=== PATIENT | male | born 1965 | race Asian ===

== ENCOUNTER 2018-09-03 14:07 | Inpatient (IN) | payer BC ==
[2018-09-03 14:46] LABS: ADD MAN DIFF? NO
[2018-09-03 14:48] LABS: BASOPHIL # 0.1 10^3/ul (0.0-0.1); BASOPHILS % 0.4 % (0.0-2.0); EOSINOPHILS # 0.6 10^3/ul (0.0-0.5); EOSINOPHILS % 5.8 % (0.0-7.0); HEMATOCRIT 44.6 % (42.0-52.0); HEMOGLOBIN 15.2 g/dl (14.0-18.0); LYMPHOCYTES # 2.9 10^3/ul (0.8-2.9); LYMPHOCYTES % 25.6 % (15.0-51.0); MEAN CORPUSCULAR HEMOGLOBIN 31.5 pg (29.0-33.0); MEAN CORPUSCULAR HGB CONC 34.1 g/dl (32.0-37.0); MEAN CORPUSCULAR VOLUME 92.3 fl (82.0-101.0); MEAN PLATELET VOLUME 9.9 fl (7.4-10.4); MONOCYTE # 0.7 10^3/ul (0.3-0.9); MONOCYTES % 6.4 % (0.0-11.0); NEUTROPHIL # 6.8 10^3/ul (1.6-7.5); NEUTROPHILS % 61.4 % (39.0-77.0); PLATELET COUNT 192 10^3/UL (140-415); RED BLOOD COUNT 4.83 10^6/ul (4.70-6.10); RED CELL DISTRIBUTION WIDTH 12.5 % (11.5-14.5)
[2018-09-03 14:48] LABS: WHITE BLOOD COUNT 11.1 10^3/ul (4.8-10.8)
[2018-09-03] MEDS: SOD CHLORIDE 0.9% 1,000 ML IV (14:49)
[2018-09-03 15:07] LABS: ANION GAP 9 (5-13); BLOOD UREA NITROGEN 14 mg/dl (7-20); CARBON DIOXIDE 25 mmol/L (21-31); CHLORIDE 103 mmol/L (97-110); CREATININE 0.92 mg/dl (0.61-1.24); Estimated GFR > 60 mL/min (>60); GLUCOSE 115 mg/dl (70-220); POTASSIUM 3.6 mmol/L (3.5-5.1); SODIUM 137 mmol/L (135-144)
[2018-09-03 15:21] LABS: TROPONIN-I 0.402 ng/ml (0.000-0.120)
[2018-09-03] MEDS: ASPIRIN 81 MG TAB PO ×2 (16:00→23:54)
[2018-09-03] MEDS ORDERED: ONDANSETRON 4 MG INJ IV ×2 (18:00→18:30)
[2018-09-03] MEDS ORDERED: ACETAMINOPHEN 325 MG TAB PO ×2 (18:00→18:30)
[2018-09-03] MEDS ORDERED: HYDROCODONE/APAP (5/325) TAB PO (18:30)
[2018-09-03] MEDS ORDERED: NITROGLYCERIN (SL) 0.4 MG TAB SL (18:30)
[2018-09-03] MEDS ORDERED: NACL 0.9% 3 ML SYG IV (18:30)
[2018-09-03] MEDS ORDERED: DOCUSATE SODIUM 100 MG CAP PO (18:30)
[2018-09-03] MEDS ORDERED: morphine 2 MG INJ IV (18:30)
[2018-09-03] MEDS ORDERED: MAGNESIUM HYDROXIDE 30ML CUP PO (18:30)
[2018-09-03 18:54] LABS: HEMOGLOBIN A1C 5.7 % (0-5.9)
[2018-09-03] MEDS: POTASSIUM CHLORIDE (SR) 20 MEQ TAB PO (19:25)
[2018-09-03 22:36] LABS: CREATINE KINASE 676 IU/L (23-200)
[2018-09-03 22:49] LABS: CK INDEX 2.8
[2018-09-03] MEDS: HEPARIN 1000 UNITS/ML 10 ML INJ IV (23:53)
[2018-09-03] MEDS: TICAGRELOR 90 MG TABLET PO (23:54)
[2018-09-04] MEDS ORDERED: HEPARIN 1000 UNITS/ML 10 ML INJ (00:18)
[2018-09-04] MEDS ORDERED: IODIXANOL LOCM 100 ML BTL ×2 (00:18→01:33)
[2018-09-04] MEDS ORDERED: LIDOCAINE 1% (MDV) 20 ML INJ (00:18)
[2018-09-04] MEDS ORDERED: MIDAZOLAM 1 MG/ML 2 ML INJ (00:21)
[2018-09-04] MEDS ORDERED: VERAPAMIL 5 MG INJ (00:21)
[2018-09-04] MEDS ORDERED: FENTAnyl 50 MCG/ML VIAL (00:21)
[2018-09-04] MEDS ORDERED: NITROGLYCERIN (IC) 100 MCG/ML INJ (00:22)
[2018-09-04] MEDS ORDERED: IOHEXOL 350MG/ML 50 ML BTL (01:34)
[2018-09-04] MEDS ORDERED: ONDANSETRON 4 MG INJ IV (02:30)
[2018-09-04] MEDS ORDERED: OXYCODONE/ACETAMINOPHEN (5/325) TAB PO (02:30)
[2018-09-04] MEDS ORDERED: morphine 2 MG INJ IV (02:30)
[2018-09-04] MEDS ORDERED: ACETAMINOPHEN 325 MG TAB PO (02:30)
[2018-09-04] MEDS ORDERED: AL HYDROX/MG HYDROX/SIMETH 30 ML CUP PO (02:30)
[2018-09-04] MEDS: SOD CHLORIDE 0.45% 1,000 ML IV (03:00)
[2018-09-04 05:17] LABS: ADD MAN DIFF? NO; BASOPHIL # 0.1 10^3/ul (0.0-0.1); BASOPHILS % 0.6 % (0.0-2.0); EOSINOPHILS # 0.7 10^3/ul (0.0-0.5); EOSINOPHILS % 7.1 % (0.0-7.0); HEMATOCRIT 41.9 % (42.0-52.0); HEMOGLOBIN 14.1 g/dl (14.0-18.0); LYMPHOCYTES # 2.8 10^3/ul (0.8-2.9); LYMPHOCYTES % 27.4 % (15.0-51.0); MEAN CORPUSCULAR HEMOGLOBIN 31.5 pg (29.0-33.0); MEAN CORPUSCULAR HGB CONC 33.7 g/dl (32.0-37.0); MEAN CORPUSCULAR VOLUME 93.7 fl (82.0-101.0); MEAN PLATELET VOLUME 10.3 fl (7.4-10.4); MONOCYTE # 0.7 10^3/ul (0.3-0.9); MONOCYTES % 7.2 % (0.0-11.0); NEUTROPHIL # 5.8 10^3/ul (1.6-7.5); NEUTROPHILS % 57.2 % (39.0-77.0); PLATELET COUNT 201 10^3/UL (140-415); RED BLOOD COUNT 4.47 10^6/ul (4.70-6.10); RED CELL DISTRIBUTION WIDTH 12.6 % (11.5-14.5)
[2018-09-04 05:17] LABS: WHITE BLOOD COUNT 10.1 10^3/ul (4.8-10.8)
[2018-09-04 05:49] LABS: ANION GAP 7 (5-13); BLOOD UREA NITROGEN 13 mg/dl (7-20); CALCIUM 8.7 mg/dl (8.4-10.2); CARBON DIOXIDE 27 mmol/L (21-31); CHLORIDE 108 mmol/L (97-110); CHOL/HDL RATIO 3.8 RATIO; CHOLESTEROL 161 mg/dl (100-200); CREATININE 0.85 mg/dl (0.61-1.24); Estimated GFR > 60 mL/min (>60); GLUCOSE 105 mg/dl (70-220); HDL CHOLESTEROL 42 mg/dl (28-71); LDL CHOLESTEROL,CALCULATED 90 mg/dl; MAGNESIUM 2.1 mg/dl (1.7-2.5); POTASSIUM 4.2 mmol/L (3.5-5.1); SODIUM 142 mmol/L (135-144); TRIGLYCERIDES 145 mg/dl (0-149)
[2018-09-04 06:01] LABS: CREATINE KINASE 611 IU/L (23-200)
[2018-09-04] MEDS: PANTOPRAZOLE (EC) 40 MG TAB PO (06:07)
[2018-09-04 06:16] LABS: CK INDEX 3.2
[2018-09-04] MEDS: DOCUSATE SODIUM 100 MG CAP PO ×2 (08:07→20:38)
[2018-09-04] MEDS: FAMOTIDINE 20 MG TAB PO ×2 (08:08→20:38)
[2018-09-04] MEDS: ENOXAPARIN 40 MG/0.4 ML SYG SC (08:10)
[2018-09-04] MEDS: TICAGRELOR 90 MG TABLET PO ×2 (10:37→20:42)
[2018-09-04] MEDS: NICOTINE (21 MG/24 HR) PATCH TRANSDERM (10:38)
[2018-09-04] MEDS: ATORVASTATIN 80 MG TAB PO (20:38)
[2018-09-05] MEDS: PANTOPRAZOLE (EC) 40 MG TAB PO (05:38)
[2018-09-05 05:54] LABS: ADD MAN DIFF? NO
[2018-09-05 06:03] LABS: BASOPHIL # 0.1 10^3/ul (0.0-0.1); BASOPHILS % 0.5 % (0.0-2.0); EOSINOPHILS # 0.7 10^3/ul (0.0-0.5); EOSINOPHILS % 5.9 % (0.0-7.0); HEMATOCRIT 43.6 % (42.0-52.0); HEMOGLOBIN 14.5 g/dl (14.0-18.0); LYMPHOCYTES # 2.1 10^3/ul (0.8-2.9); LYMPHOCYTES % 18.2 % (15.0-51.0); MEAN CORPUSCULAR HEMOGLOBIN 31.7 pg (29.0-33.0); MEAN CORPUSCULAR HGB CONC 33.3 g/dl (32.0-37.0); MEAN CORPUSCULAR VOLUME 95.2 fl (82.0-101.0); MEAN PLATELET VOLUME 10.5 fl (7.4-10.4); MONOCYTE # 0.9 10^3/ul (0.3-0.9); MONOCYTES % 8.1 % (0.0-11.0); NEUTROPHIL # 7.7 10^3/ul (1.6-7.5); NEUTROPHILS % 66.9 % (39.0-77.0); PLATELET COUNT 202 10^3/UL (140-415); RED BLOOD COUNT 4.58 10^6/ul (4.70-6.10); RED CELL DISTRIBUTION WIDTH 12.7 % (11.5-14.5)
[2018-09-05 06:03] LABS: WHITE BLOOD COUNT 11.6 10^3/ul (4.8-10.8)
[2018-09-05 06:30] LABS: ALBUMIN 3.9 g/dl (3.3-4.9); ANION GAP 9 (5-13); BLOOD UREA NITROGEN 20 mg/dl (7-20); CALCIUM 8.7 mg/dl (8.4-10.2); CARBON DIOXIDE 26 mmol/L (21-31); CHLORIDE 109 mmol/L (97-110); CREATININE 0.98 mg/dl (0.61-1.24); GLUCOSE 113 mg/dl (70-220); MAGNESIUM 2.2 mg/dl (1.7-2.5); PHOSPHORUS 3.2 mg/dl (2.5-4.9); POTASSIUM 3.9 mmol/L (3.5-5.1); SODIUM 144 mmol/L (135-144)
[2018-09-05 06:37] LABS: CHOLESTEROL 168 mg/dl (100-200)
[2018-09-05 06:37] LABS: HDL CHOLESTEROL 41 mg/dl (28-71); LDL CHOLESTEROL,CALCULATED 103 mg/dl; TRIGLYCERIDES 120 mg/dl (0-149)
[2018-09-05] MEDS: NICOTINE (21 MG/24 HR) PATCH TRANSDERM (08:45)
[2018-09-05] MEDS: DOCUSATE SODIUM 100 MG CAP PO (08:46)
[2018-09-05] MEDS: FAMOTIDINE 20 MG TAB PO (08:46)
[2018-09-05] MEDS: TICAGRELOR 90 MG TABLET PO (08:46)
== END 2018-09-05 15:40 | disposition home or self-care (01) | DRG 247 ==
LOC: ICU 09-04 02:38 → E/R 14:07 → TEL 17:53
PROVIDERS: Internal Medicine
PROC: 027034Z Dilation of Coronary Artery, One Artery with Drug-eluting Intraluminal Device, Percutaneous Approach (ICD-10-PCS; principal; 2018-09-04 00:30)
PROC: 02C03ZZ Extirpation of Matter from Coronary Artery, One Artery, Percutaneous Approach (ICD-10-PCS; 2018-09-04 00:30)
PROC: 4A023N7 Measurement of Cardiac Sampling and Pressure, Left Heart, Percutaneous Approach (ICD-10-PCS; 2018-09-04 00:30)
PROC: B211YZZ Fluoroscopy of Multiple Coronary Arteries using Other Contrast (ICD-10-PCS; 2018-09-04 00:30)
DX: I21.02 ST elevation (STEMI) myocardial infarction involving left anterior descending coronary artery (principal); I25.10 Atherosclerotic heart disease of native coronary artery without angina pectoris; F17.200 Nicotine dependence, unspecified, uncomplicated
CPT/HCPCS: 36415; 71045; 80048; 80061; 80069; 82550; 82553; 82962; 83036; 83735; 84443; 84484; 85025; 87081; 93005; 93306; 93458; 97161; 99291-25